=== PATIENT | female | born 1955 | race Asian ===

== ENCOUNTER 2019-07-05 06:24 | Day surgery (SDC) | payer OTHER ==
[~2019-07-05] VITALS: Ht 154.9 cm; Wt 58.5 kg
[2019-07-05] MEDS ORDERED: CEFAZOLIN 1 GM IVPB PREMIX 50 ML IV ONE ×2 (07:00→07:31)
[2019-07-05] MEDS ORDERED: ROCURONIUM BROMIDE 10 MG/ML (ZEMURON) IV ONE (09:40)
[2019-07-05] MEDS ORDERED: PROPOFOL 200MG/ 20ML VIAL (DIPRIVAN) IV ONE (09:40)
[2019-07-05] MEDS ORDERED: ONDANSETRON HCL 4 MG/2 ML VIAL IVP ONE (09:40)
[2019-07-05] MEDS ORDERED: LR 1,000 ML IV.SOLN IV ONE (09:40)
[2019-07-05] MEDS ORDERED: NEOSTIGMINE METHYLSULFATE 1 MG/ML, 10 ML VIAL IVP ONE (09:40)
[2019-07-05] MEDS ORDERED: SEVOFLURANE 15 MIN GAS INH ONE (09:40)
[2019-07-05] MEDS ORDERED: NS IRRIG SOLN 1000 ML IR ONE (09:40)
[2019-07-05] MEDS ORDERED: MEPERIDINE HCL/PF 100 MG/ML AMP IM ONE (09:40)
[2019-07-05] MEDS ORDERED: fentaNYL CITRATE 250 MCG/5 ML AMP IV ONE (09:40)
[2019-07-05] MEDS ORDERED: GLYCOPYRROLATE 0.2 MG/ML VIAL IJ ONE (09:40)
[2019-07-05] MEDS ORDERED: MIDAZOLAM HCL 5 MG/5 ML VIAL IVP ONE (09:40)
[2019-07-05] MEDS ORDERED: LR 1,000 ML IV SCH (10:34)
[2019-07-05] MEDS ORDERED: MORPHINE 4 MG/ML INJ. SYRINGE IVP PRN ×3 (10:45)
[2019-07-05] MEDS ORDERED: METOCLOPRAMIDE HCL 10 MG/2 ML VIAL IVP PRN (10:45)
[2019-07-05] MEDS ORDERED: D5/0.45 NS 1,000 ML IV SCH (10:46)
[2019-07-05] MEDS ORDERED: HYDROcodone/ACETAMIN 5-325 MG TAB (NORCO/ VICODIN) PO PRN ×2 (11:00)
[2019-07-05] MEDS ORDERED: HYDROmorphone 1 MG INJ. 1 MG/ML AMPUL IVP PRN (11:00)
[2019-07-05 13:11] VITALS: BP_SYST 141
== END 2019-07-05 15:28 | disposition home or self-care (01) ==
LOC: SMU 06:24 → SDS 06:24 → EDSTATUS 08:45 → SDS 15:28
PROVIDERS: ATTEND Colon & Rectal Surgery
DX: D05.11 Intraductal carcinoma in situ of right breast (principal); I10 Essential (primary) hypertension; E78.5 Hyperlipidemia, unspecified; M85.80 Other specified disorders of bone density and structure, unspecified site; Z85.3 Personal history of malignant neoplasm of breast; Z79.899 Other long term (current) drug therapy
CPT/HCPCS: 19281; 19301; 88305; 88307; J0690; J2175; J2250; J2405; J2704; J2710; J3010; J3490; J7120